=== PATIENT | female | born 1950 | race Caucasian/White ===

== ENCOUNTER 2019-01-06 11:15 | Day surgery (SDC) | payer MEDICARE, MEDICAID ==
[~2019-01-06] VITALS: Ht 157.5 cm; Wt 87.9 kg
[2019-01-06] VITALS (13 sets, daily range): BP systolic 99–137; BP diastolic 50–80; PULSE 74–95; TEMP 98
[~2019-01-06 11:15] MED LIST: ANORO IH; COMBIRESP IH; DOXYCYCLINE 10100 MG PO; LAMICTAL 100MG100 MG PO; LAMICTAL200 MG PO; MULTI VITAMINS1 TAB PO; PREDNISONE20 MG PO; PRIL40 PO; PROAIR HFA0.09 MG/AC IH; SYNTHROID 0.0.025 MG PO; SYNTHROID 0.10.15 MG PO; SYNTHROID0.05 MG/TA PO; VITAMIN C500 MG PO; ZETIA 10MG TAB10 MG PO
[2019-01-06] MEDS ORDERED: SYNTHROID0.1 MG/TAB PO (11:56)
[2019-01-06 11:57] LABS: INR 0.9 (0.8-3.0); PROTHROMBIN TIME 10.2 SECONDS (9.7-12.8)
[2019-01-06 11:58] LABS: HEMATOCRIT 49.4 % (37.0-47.0); HEMOGLOBIN 16.5 g/dl (12.5-16.0); MEAN CELL VOLUME 91 fl (80.0-100.0); MEAN CORPUSCULAR HEMOGLOBIN 30 pg (27.0-31.0); MEAN CORPUSCULAR HGB CONC 33 g/dl (33.0-37.0); MEAN PLATELET VOLUME 10.2 fl (7.4-10.4); PLATELET COUNT 223 K/mm3 (130-400); RED BLOOD COUNT 5.45 M/mm3 (4.10-5.30); REDCELL DISTRIBUTION WIDTH-CV 13.7 % (11.5-14.5)
[2019-01-06] MEDS ORDERED: XANAX .25M0.25 MG/TA PO (11:58)
[2019-01-06 12:01] LABS: CALCIUM 9.5 mg/dL (8.4-10.2); CREATININE, serum 0.85 (0.52-1.25); POTASSIUM 4.2 mmol/L (3.4-5.0)
[2019-01-06] MEDS ORDERED: ANORO IH (12:04)
[2019-01-06] MEDS ORDERED: DEXEDRINE5 MG PO (12:09)
--- NOTE | 2019-01-06 13:49 | NUR ---
ALL MEDICATIONS GIVEN VORB WITH MD. SEE MERGE FOR ALL MEDICATION ADMIN TIMES. SEE MERGE FOR ALL RASS ASSESSMENTS DURING AND POST PROCEDURE. RADIAL PULSE +2.
[2019-01-06 14:38] LABS: ARTERIAL BLD GAS O2 SATURATION 91.8 % (92-100); ARTERIAL BLD GAS TCO2 CT 28.7; ARTERIAL BLOOD GAS BASE EXCESS 1.9 (-2-2); ARTERIAL BLOOD GAS HCO3 27.3 meq/L (22-26); ARTERIAL BLOOD GAS PCO2 45.4 mmHg (35-45); ARTERIAL BLOOD GAS PO2 60.4 mmHg (80-100)
--- NOTE | 2019-01-06 15:05 | NUR ---
Pt returned to EU 10 per bed s/p heart cath. Pt has TR band to R radial site. Pt has L fomoral venous site with man pressure and L femoral arterial site with angioseal. Pt c/o chronic back spasms. Repositioned for comfort.
--- NOTE | 2019-01-06 15:12 | NUR ---
Patient transported back to [facility] room 10. Patient attached to monitoring equipment, VS stable. Patient denies any pain. Bedside report given to KYLIE Valdez. Visualized right radial and left groin sites together. TR band remains in place with 12 ml of air in the band. Cap refill <3 seconds. Wrist restrictions discussed with patient. Left groin sites stable, no oozing or hematoma noted at this time. Dressing clean, dry, and intact. Pedal pulses +2 bilaterally. Discussed strict bedrest with patient. Bed in locked and lowest position with call light within reach.
--- NOTE | 2019-01-06 15:35 | NUR ---
Scant bleeding noted to L femoral venous site. Manual pressure applied.
--- NOTE | 2019-01-06 15:40 | NUR ---
This RN was asked to assist with getting the patient comfortable with Express RN. The groin was noted to be oozing. KYLIE Valdez held pressure for about 5 minutes. Dressing was changed at this time. No oozing noted after manual pressure. Site still soft and nontender. This RN applied new sterile dressing to site. Discussed importance of keeping left leg straight and head down on pillow. [id number]- MD RIVERO AT BEDSIDE, NOTIFIED OF PATIENT ASKING FOR PAIN MEDICATION AND ABOUT GROIN OOZING AND DRESSING CHANGE.
[2019-01-06] MEDS ORDERED: COZAAR 25MG25 MG/TAB PO (15:49)
[2019-01-06] MEDS ORDERED: COREG 3.123.125 MG/T PO (15:49)
--- NOTE | 2019-01-06 16:41 | NUR ---
Report to Hola Grace RN who assumed care at this time.
--- NOTE | 2019-01-06 17:52 | NUR ---
Right Tband delfated with 12 cc air out. Pressure dressing applied
--- NOTE | 2019-01-06 18:49 | NUR ---
Raised HOB to 30 degrees. Left groin site remains CD&I and soft to palpation
--- NOTE | 2019-01-06 19:00 | NUR ---
Ambualted to bathroom with one assist. INT discontinued intact. Discharge instructions given with daughter Radha to take pt home.
== END 2019-01-06 19:25 | disposition home or self-care (01) ==
LOC: COL.CAR 11:15
PROVIDERS: Internal Medicine Cardiovascular Disease
DX: R07.89 Other chest pain (principal); I25.10 Atherosclerotic heart disease of native coronary artery without angina pectoris; I27.20 Pulmonary hypertension, unspecified; I08.1 Rheumatic disorders of both mitral and tricuspid valves; F17.210 Nicotine dependence, cigarettes, uncomplicated; Z79.899 Other long term (current) drug therapy; E07.9 Disorder of thyroid, unspecified; Z82.49 Family history of ischemic heart disease and other diseases of the circulatory system
CPT/HCPCS: J1644; J2250; J3010; Q9967

== ENCOUNTER → 2019-05-13 | Outpatient (CLI) | payer MEDICARE, MEDICAID ==
--- NOTE | 2019-05-09 08:53 | NUR ---
phone number did not work. called her daughter francis and spoke to her gave her the information
[~2019-05-13] VITALS: Ht 157.5 cm; Wt 87.7 kg
[~2019-05-13] MED LIST changes: +COREG 3.123.125 MG/T PO; +COZAAR 25MG25 MG/TAB PO; +DEXEDRINE5 MG PO; +SYNTHROID0.1 MG/TAB PO; +XANAX .25M0.25 MG/TA PO
[2019-05-13 12:51] VITALS: BP 130/90; PULSE 87
[2019-05-13 13:55] VITALS: BP 143/83; PULSE 93
[2019-05-13 14:10] VITALS: BP 133/98; PULSE 87
--- NOTE | 2019-05-13 14:25 | NUR ---
Pt alert and oriented denies complaints at this time. Pts ride notified and will be in patient entrance. Pt down to car per wheelchair. Pt up and into car without difficulty.
== END ==
LOC: COL.RAD 12:12
DX: G31.9 Degenerative disease of nervous system, unspecified (principal); Z85.118 Personal history of other malignant neoplasm of bronchus and lung; W19.XXXS Unspecified fall, sequela
CPT/HCPCS: J2704

== ENCOUNTER → 2023-04-27 | Outpatient (CLI) | payer MEDICARE, MEDICAID | LOC: COL.RAD 14:40 | DX: C34.11 Malignant neoplasm of upper lobe, right bronchus or lung (principal) | CPT/HCPCS: Q9967 ==